=== PATIENT | female | born 1935 | race Caucasian/White ===

== ENCOUNTER → 2016-12-23 09:23 | Outpatient (CLI) | payer OTHER | END | disposition home or self-care (01) | LOC: D.RAD 09:23 | DX: S16.1XXA Strain of muscle, fascia and tendon at neck level, initial encounter (principal); X58.XXXA Exposure to other specified factors, initial encounter; Y93.89 Activity, other specified; Y92.89 Other specified places as the place of occurrence of the external cause ==

== ENCOUNTER → 2017-06-21 16:58 | Outpatient (CLI) | payer OTHER | END | disposition home or self-care (01) | LOC: D.MAMMO 14:15 | DX: Z12.31 Encounter for screening mammogram for malignant neoplasm of breast (principal) ==

== ENCOUNTER → 2017-10-13 10:57 | Outpatient (CLI) | payer MEDICARE | END | disposition home or self-care (01) | LOC: D.LAB 10:57 | DX: E03.8 Other specified hypothyroidism (principal) ==

== ENCOUNTER → 2018-02-20 10:29 | Outpatient (CLI) | payer MEDICARE ==
[2018-02-22 06:17] LABS: ENDOMYSIAL ANTIBODY IGA Negative (Negative)
[2018-02-22 13:21] LABS: ANTIGLIADIN IGA 28 units (0-19); ANTIGLIADIN IGG 22 units (0-19)
== END | disposition home or self-care (01) ==
LOC: D.LAB 10:15
PROVIDERS: Internal Medicine Gastroenterology
DX: D72.820 Lymphocytosis (symptomatic) (principal)

== ENCOUNTER → 2018-06-02 09:25 | Outpatient (CLI) | payer MEDICARE ==
[2018-06-02 10:36] LABS: BASOPHILS 0.5 % (0-2); EOSINOPHILS 1.7 % (0-7); HEMATOCRIT 41.1 % (36.0-48.0); HEMOGLOBIN 14.1 g/dL (12-16); IMMATURE GRANULOCYTES 0.1 % (0-5); LYMPHOCYTES 22.6 % (15-50); MCH 31.7 pg (26.0-34.0); MCHC 34.3 g/dL (31.0-37.0); MCV 92.4 fL (80.0-100.0); MEAN PLATELET VOLUME 12.1 fL (7.4-10.4); MONOCYTES 11.9 % (2-11); NEUTROPHILS 63.2 % (40-80); PLATELET COUNT 185 10x3/uL (130-400); RBC 4.45 10x6/uL (4.00-5.40); RDW 13.5 % (11.5-14.5); WBC 7.6 10x3/uL (4.8-10.8)
[2018-06-02 10:50] LABS: ALBUMIN 3.6 g/dL (3.4-5.0); ANION GAP 12.6 mmol/L (8-16); BILIRUBIN - TOTAL 0.45 mg/dL (0.2-1.3); CARBON DIOXIDE 27.4 mmol/L (21.0-32.0); CHOL - HDL RATIO 4.4 ratio (2.3-4.1); CREATININE - SERUM 0.9 mg/dL (0.6-1.3); LDL-HDL RATIO 2.8 ratio (1.5-3.5); PROTEIN - SERUM 7.1 g/dL (6.4-8.2); THYROID STIMULATING HORMONE 3.52 uIU/mL (0.36-3.74)
== END | disposition home or self-care (01) ==
LOC: D.LAB 09:25
PROVIDERS: Family Medicine
DX: E78.2 Mixed hyperlipidemia (principal); Z00.01 Encounter for general adult medical examination with abnormal findings

== ENCOUNTER → 2018-06-27 21:13 | Outpatient (CLI) | payer MEDICARE | END | disposition home or self-care (01) | LOC: D.MAMMO 14:45 | DX: Z12.31 Encounter for screening mammogram for malignant neoplasm of breast (principal) ==

== ENCOUNTER → 2018-12-01 09:55 | Outpatient (CLI) | payer MEDICARE ==
[2018-12-01 11:03] LABS: CHOL - HDL RATIO 4.8 ratio (2.3-4.1); LDL-HDL RATIO 2.8 ratio (1.5-3.5); THYROID STIMULATING HORMONE 2.86 uIU/mL (0.36-3.74)
== END | disposition home or self-care (01) ==
LOC: D.LAB 09:55
PROVIDERS: ATTEND Family Medicine
DX: E78.2 Mixed hyperlipidemia (principal); E03.9 Hypothyroidism, unspecified

== ENCOUNTER → 2019-03-27 09:12 | Outpatient (CLI) | payer MEDICARE ==
[2019-03-27 10:19] LABS: ALBUMIN 3.7 g/dL (3.4-5.0); ANION GAP 10.1 mmol/L (8-16); BILIRUBIN - TOTAL 0.59 mg/dL (0.2-1.3); CALCIUM 9.1 mg/dL (8.5-10.1); CARBON DIOXIDE 31.1 mmol/L (21.0-32.0); CHOL - HDL RATIO 4.7 ratio (2.3-4.1); LDL-HDL RATIO 3.1 ratio (1.5-3.5); POTASSIUM - SERUM 4.2 mmol/L (3.5-5.1); PROTEIN - SERUM 6.7 g/dL (6.4-8.2); THYROID STIMULATING HORMONE 3.73 uIU/mL (0.36-3.74)
== END | disposition home or self-care (01) ==
LOC: D.LAB 09:12
PROVIDERS: ATTEND Family Medicine
DX: E78.2 Mixed hyperlipidemia (principal); E03.9 Hypothyroidism, unspecified